=== PATIENT | female | born 1995 | race Caucasian/White ===

== ENCOUNTER 2018-01-11 16:42 | Emergency (ER) | payer BC ==
[2018-01-11] MEDS ORDERED: Lidocaine/EPINEPHrine/Tetracaine Soln 1 ML TOP ONE (17:11)
[2018-01-11] MEDS ORDERED: Lidocaine 1% with EPINEPHrine 1:100,000 20 ML MDV INJECT ONE (17:11)
[2018-01-11] MEDS ORDERED: Diphtheria,Pertussis(Acell),Tetanus Vaccine 0.5 ML SDV IM ONE (17:16)
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
[2018-01-11] MEDS ORDERED: Cephalexin 500 MG Cap PO STA (18:40)
== END 2018-01-11 18:55 | disposition home or self-care (01) ==
LOC: JD.ED 16:42 → SUPCPDRO 16:42 → JD.ED 18:55
DX: S01.112A Laceration without foreign body of left eyelid and periocular area, initial encounter (principal); Z23 Encounter for immunization; W22.8XXA Striking against or struck by other objects, initial encounter; Y93.72 Activity, wrestling
CPT/HCPCS: 12011; 90471; 90715; 99283; A9270; 99282-25